=== PATIENT | male | born 1930 | race African-American/Black ===

== ENCOUNTER 2017-06-30 08:31 | Inpatient (IN) | END 2017-07-20 17:51 | disposition home health service (06) | DRG 291 ==

== ENCOUNTER 2018-10-22 11:59 | Emergency (ER) | payer MEDICARE, OTHER ==
[~2018-10-22] VITALS: Ht 177.8 cm; Wt 80.0 kg
[~2018-10-22 11:59] MED LIST: CALC0.5C10 PO; Calcium Carbonate PO; HYDR5TAB7 PO; LEVO150T7 PO; PHEN200C PO; TAMS-14 PO; ZOLP5TAB7 PO
[2018-10-22 12:05] VITALS: Ht 177.8 cm; Wt 80.0 kg
[2018-10-22] MEDS ORDERED: LORAZEPAM 2 MG INJ IV STA (12:05)
[2018-10-22] MEDS ORDERED: SOD CHLORIDE 0.9% 500 ML IV STA (12:05)
[2018-10-22] MEDS ORDERED: DEXTROSE 50% 50 ML SYRINGE IV STA (12:05)
--- NOTE | 2018-10-22 13:51 | ERD ---
ER Documentation Chief Complaint Chief Complaint SEZIURE EPISODES - POST ICTAL HPI This is an 87-year-old gentleman with a prior history of stroke and seizure disorder presents to the emergency room with a witnessed generalized tonic- clonic seizure that occurred prior to arrival with spontaneous resolution. Accu-Chek in the field was normal. Patient has since returned to baseline. He does note some mild generalized weakness over the past 24 hours and may have missed 1 of his doses of Dilantin. He otherwise has no complaints he denies any chest pain headache abdominal pain nausea vomiting or diarrhea, no dysuria urgency or frequency. ROS All systems reviewed and are negative except as per history of present illness. Medications Home Meds Reported Medications Calcitriol* (Calcitriol*) 0.5 Mcg Capsule, 0.5 MCG PO BID, CAP 06/30/17 Levothyroxine Sodium* (Levothyroxine Sodium*) 150 Mcg Tablet, 150 MCG PO BEFORE BREAKFAST, TAB 06/30/17 Phenytoin* Sodium Extended (Dilantin*) 200 Mg Capsule, 200 MG PO HS, CAP 06/30/17 Hydrocortisone (Hydrocortisone) 5 Mg Tablet, 10 MG PO TID, TAB 06/30/17 Discontinued Reported Medications Tamsulosin Hcl* (Flomax*) 0.4 Mg Cap.er.24h, 0.4 MG PO DAILY, CAP 07/01/17 Zolpidem Tartrate* (Zolpidem Tartrate*) 5 Mg Tablet, 5 MG PO QHS PRN for INSOMNIA, TAB 06/30/17 Discontinued Scripts [Calcium Carbonate] 1.25 GM TAB No Conflict Check, 1.25 GM PO AC MEALS for 30 Days, #90 Prov:YANCY BURK MD 07/20/17 Allergies Allergies: Coded Allergies: No Known Allergy (Verified , 07/15/17) PMhx/Soc History of Surgery: Yes (pituatary ) Anesthesia Reaction: No Hx Neurological Disorder: Yes (seizures) Hx Respiratory Disorders: Yes (chf) Hx Cardiac Disorders: Yes Hx Psychiatric Problems: No Hx Miscellaneous Medical Probl: Yes (h.of pituitary gland, s/p tumore resection, prostate ca) Hx Alcohol Use: No Hx Substance Use: No Hx Tobacco Use: No Smoking Status: Never smoker FmHx Family History: No diabetes Physical Exam Vitals Vital Signs Date Temp Pulse Resp B/P (MAP) Pulse Ox O2 O2 Flow FiO2 Time Delivery Rate 10/22/18 98.2 92 18 125/61 99 12:05 (82) Physical Exam General: Well developed, well nourished, no acute distress Head: Normocephalic, atraumatic. Eyes: Pupils equally reactive, EOM intact ENT: Moist mucous membranes Neck: Supple, no lymphadenopathy Respiratory: Lungs clear bilaterally, no distress Cardiovascular: RRR, no murmurs, rubs, or gallops Abdominal: Soft, non-tender, non-distended, no peritoneal signs : Deferred MSK: No edema, no unilateral swelling, 5/5 strength Neurologic: Alert and oriented, moving all extremities, normal speech, no focal weakness, no cerebellar signs Skin: No rash Psych: Normal mood Result Diagram: 10/22/18 1250 10/22/18 1250 Results 24 hrs Laboratory Tests Test 10/22/18 12:06 10/22/18 12:50 Bedside Glucose 57 mg/dL White Blood Count 10.2 10^3/ul Red Blood Count 5.63 10^6/ul Hemoglobin 15.4 g/dl Hematocrit 46.6 % Mean Corpuscular Volume 82.8 fl Mean Corpuscular Hemoglobin 27.4 pg Mean Corpuscular Hemoglobin Concent 33.0 g/dl Red Cell Distribution Width 13.4 % Platelet Count 131 10^3/UL Mean Platelet Volume 10.3 fl Immature Granulocytes % 0.700 % Neutrophils % 70.3 % Lymphocytes % 20.0 % Monocytes % 7.8 % Eosinophils % 0.8 % Basophils % 0.4 % Nucleated Red Blood Cells % 0.0 /100WBC Immature Granulocytes # 0.070 10^3/ul Neutrophils # 7.2 10^3/ul Lymphocytes # 2.1 10^3/ul Monocytes # 0.8 10^3/ul Eosinophils # 0.1 10^3/ul Basophils # 0.0 10^3/ul Nucleated Red Blood Cells # 0.0 10^3/ul Sodium Level 136 mmol/L Potassium Level 5.1 mmol/L Chloride Level 101 mmol/L Carbon Dioxide Level 25 mmol/L Anion Gap 10 Blood Urea Nitrogen 23 mg/dl Creatinine 1.33 mg/dl Est Glomerular Filtrat Rate mL/min mL/min Glucose Level 83 mg/dl Calcium Level 8.9 mg/dl Troponin I 0.023 ng/ml Phenytoin (Dilantin) Level 14.6 ug/ml Current Medications Medications Dose Sig/Haydee Start Time Status Last (Trade) Ordered Route PRN Stop Time Admin Dose Reason Admin Sodium 500 ml @ Q1H STAT 10/22/18 DC Chloride 500 mls/hr IV 12:05 10/22/18 13:04 Lorazepam 0.5 mg ONCE STAT 10/22/18 DC (Ativan) IV 12:05 10/22/18 12:07 Dextrose 25 ml ONCE STAT 10/22/18 DC (D50w IV 12:05 Syringe) 10/22/18 12:07 Procedures/MDM EKG, MONITORS, & DIAGNOSTIC IMAGING: EKG: I reviewed and interpreted a 12-lead EKG. Rhythm: Normal sinus rhythm ST Changes: No contiguous ST segment elevations T waves: No contiguous T wave inversions Impression: [No evidence of acute cardiac ischemia] LAB INTERPRETATION: I reviewed the laboratory testing and it shows slightly elevated creatinine but consistent with baseline MEDICAL DECISION MAKING: The patient presents with likely breakthrough seizure versus noncompliant medication regimen. The patient has since returned to baseline. Patient did have a single Accu-Chek that was borderline with the patient was alert and oriented, blood test shows normal glucose, patient was given a complex carbohydrate meal. Accu-Chek in the field was normal. No indication for CT imaging of the brain given no fall no trauma and prior history of seizures. No signs or symptoms concerning for increased intracranial pressure. ER COURSE: * Seizure precautions initiated. The patient was difficult IV access and is refused IV anywhere other than his hands. I attempted and offered to place an IV using ultrasound guidance with the patient prefers not to have an IV. He understands that he may not receive medication in a timely manner but has capacity. * Dilantin level therapeutic. Laboratory testing is otherwise consistent with baseline without evidence of cardiac ischemia. No chest pain, EKG is nonischemic. * At this point the patient has returned to baseline is resting comfortably. He can be safely discharged with his family and follow-up with his neurologist as needed CONSULTATION: [None] DISPOSITION PLAN: The patient does not have an identifiable emergent medical condition that warrants inpatient hospitalization at this time. The patient is deemed safe for discharge with outpatient follow-up. We discussed follow up with the patient's primary care doctor within 24 to 48 hours as needed. We also discussed return to the emergency room for worsening symptoms or worsening condition. Outpatient referral: Neurologist Discharge Medications: COntinue home Dilantin Departure Diagnosis: Primary Impression: Breakthrough seizure Additional Impression: Renal insufficiency Condition: Stable Patient Instructions: Seizure, Recurrent [Adult] Referrals: [facility] YOU HAVE RECEIVED A MEDICAL SCREENING EXAM AND THE RESULTS INDICATE THAT YOU DO NOT HAVE A CONDITION THAT REQUIRES URGENT TREATMENT IN THE EMERGENCY DEPARTMENT. FURTHER EVALUATION AND TREATMENT OF YOUR CONDITION CAN WAIT UNTIL YOU ARE SEEN IN YOUR DOCTORS OFFICE WITHIN THE NEXT 1-2 DAYS. IT IS YOUR RESPONSIBILITY TO MAKE AN APPOINTMENT FOR FOLOW-UP CARE. IF YOU HAVE A PRIMARY DOCTOR --you should call your primary doctor and schedule an appointment IF YOU DO NOT HAVE A PRIMARY DOCTOR YOU CAN CALL OUR PHYSICIAN REFERRAL HOTLINE AT IF YOU CAN NOT AFFORD TO SEE A PHYSICIAN YOU CAN CHOSE FROM THE FOLLOWING [facility] [address] [facility] [address] [facility] [address] [facility] [address] [facility] [address] [facility] [facility] [address] [facility]. [facility] YOU HAVE RECEIVED A MEDICAL SCREENING EXAM AND THE RESULTS INDICATE THAT YOU DO NOT HAVE A CONDITION THAT REQUIRES URGENT TREATMENT IN THE EMERGENCY DEPARTMENT. FURTHER EVALUATION AND TREATMENT OF YOUR CONDITION CAN WAIT UNTIL YOU ARE SEEN IN YOUR DOCTORS OFFICE WITHIN THE NEXT 1-2 DAYS. IT IS YOUR RESPONSIBILITY TO MAKE AN APPOINTMENT FOR FOLOW-UP CARE. IF YOU HAVE A PRIMARY DOCTOR --you should call your primary doctor and schedule and appointment IF YOU DO NOT HAVE A PRIMARY DOCTOR YOU CAN CALL OUR PHYSICIAN REFERRAL HOTLINE AT . IF YOU CAN NOT AFFORD TO SEE A PHYSICIAN YOU CAN CHOSE FROM THE FOLLOWING [facility] INSTITUTIONS: [facility] [address] [place] [address] [facility] [address] [place] [address] [facility] [address] [place] [address] Additional Instructions: Please follow-up with your neurologist and let them know that you had a breakthrough seizure, return for any recurrent seizures, fevers or chills or generalized weakness. JOSEMANUEL YEUNG MD Oct 22, 2018 13:51
[2018-10-22 14:28] VITALS: BP 125/77; PULSE 78; RESP 19
== END 2018-10-22 14:29 | disposition home or self-care (01) ==
LOC: E/R 11:59
DX: G40.909 Epilepsy, unspecified, not intractable, without status epilepticus (principal); N28.9 Disorder of kidney and ureter, unspecified; R40.2142 Coma scale, eyes open, spontaneous, at arrival to emergency department; R40.2252 Coma scale, best verbal response, oriented, at arrival to emergency department; R40.2362 Coma scale, best motor response, obeys commands, at arrival to emergency department; I50.9 Heart failure, unspecified; Z85.46 Personal history of malignant neoplasm of prostate
CPT/HCPCS: 36415; 80048; 80185; 82962; 84484; 85025; 93005; 99284; J7040